=== PATIENT | male | born 1945 | race Asian ===

== ENCOUNTER 2017-05-04 12:56 | Outpatient (CLI) | payer OTHER | END 2017-05-04 19:22 | disposition home or self-care (01) | LOC: RAD 12:56 | DX: E11.9 Type 2 diabetes mellitus without complications (principal); Z13.820 Encounter for screening for osteoporosis; M85.89 Other specified disorders of bone density and structure, multiple sites ==

== ENCOUNTER 2017-06-05 13:48 | Outpatient (CLI) | payer OTHER | END 2017-06-05 23:39 | disposition home or self-care (01) | LOC: LABW 13:48 | DX: B35.1 Tinea unguium (principal) | CPT/HCPCS: 36415; 84450; 84460 ==

== ENCOUNTER 2017-09-24 10:24 | Outpatient (CLI) | payer OTHER ==
[2017-09-24 10:53] LABS: PLATELET COUNT 194 K/uL (142-355)
== END 2017-09-24 22:28 | disposition home or self-care (01) ==
LOC: LABW 10:24
PROVIDERS: Specialist
DX: G31.89 Other specified degenerative diseases of nervous system (principal)
CPT/HCPCS: 36415; 80053; 82607; 83090; 85027; 85651; 86039

== ENCOUNTER 2017-11-05 08:49 | Outpatient (CLI) | payer OTHER | END 2017-11-05 19:26 | disposition home or self-care (01) | LOC: RESP 08:49 | DX: G31.84 Mild cognitive impairment of uncertain or unknown etiology (principal) ==

== ENCOUNTER 2017-11-06 13:27 | Outpatient (CLI) | payer OTHER | END 2017-11-06 23:17 | disposition home or self-care (01) | LOC: RESP 13:27 | DX: G31.84 Mild cognitive impairment of uncertain or unknown etiology (principal) ==

== ENCOUNTER 2023-02-27 10:44 | Outpatient (CLI) | payer OTHER | END 2023-02-27 19:02 | disposition home or self-care (01) | LOC: MRI 10:44 | PROVIDERS: ATTEND Psychiatry & Neurology Neurology | DX: R41.82 Altered mental status, unspecified (principal) ==